=== PATIENT | male | born 1970 | race Caucasian/White ===

== ENCOUNTER 2019-06-25 15:47 | Outpatient (REF) | payer SELFPAY ==
[2019-06-25 19:15] LABS: Chol HDL Ratio 5.17 mg/dL (1.0-5.00); Cholesterol 212 mg/dL (0-200); Glucose 265 mg/dL (65-115); HDL Cholesterol 41 mg/dL (60-100); LDL Cholesterol Calculated 134 mg/dL (50-129); LDL HDL Ratio 3.27 RATIO (0.00-3.22); Triglycerides 184 mg/dL (0-150)
[2019-06-25 21:27] LABS: Estmated Average Glucose 258; Hemoglobin A1C 10.6 % (4.0-6.0)
== END 2019-06-25 15:48 | disposition home or self-care (01) ==
LOC: LAB 15:47
PROVIDERS: Family Provider Nurse Practitioner; PCP Nurse Practitioner; Visit Provider Dermatology
DX: Z13.9 Encounter for screening, unspecified (principal)
CPT/HCPCS: 80061; 82947; 83036

== ENCOUNTER → 2019-10-13 11:01 | Outpatient (BNVA) | payer SELFPAY | PROVIDERS: Family Provider Nurse Practitioner; PCP Nurse Practitioner; Visit Provider Nurse Practitioner Family | DX: L02.212 Cutaneous abscess of back [any part, except buttock and flank] (principal) | CPT/HCPCS: 87070; 87077; 87186 ==

== ENCOUNTER → 2019-10-17 11:28 | Outpatient (BNVA) | payer SELFPAY | PROVIDERS: Family Provider Nurse Practitioner; PCP Nurse Practitioner; Visit Provider Nurse Practitioner Family | DX: E11.42 Type 2 diabetes mellitus with diabetic polyneuropathy (principal); Z79.4 Long term (current) use of insulin; I10 Essential (primary) hypertension; L02.212 Cutaneous abscess of back [any part, except buttock and flank] | CPT/HCPCS: 80053; 80061; 83036; 84443; 85025 ==

== ENCOUNTER 2020-09-07 13:44 | Outpatient (CLI) | payer OTHER, SELFPAY ==
--- NOTE | 2020-09-07 | XR_ITS ---
WS: [id number] SCREENING DEXA SCAN [facility] CLINICAL INFORMATION: ENCOUNTER SCREENING FOR OSTEOPOROSIS COMPARISON: None. FINDINGS: The L1-L4 bone mineral density measures 1.126 g/cm2. This corresponds to a T score score of -0.8 and Z score of -1.3. Left femoral neck bone mineral density measures 1.017 g/cm2. This corresponds to a T score of -0.6 an d Z score of -0.7. Right femoral neck bone mineral density measures 1.049 g/cm2. This corresponds to a T score -0.4of an d Z score of -0.5. Mean femoral neck bone mineral density measures 1.033 g/cm2. This corresponds to a T score of -0.5 an d Z score of -0.6. XR/XR DEXA axial skeleton* 30209 IMPRESSION: Normal bone mineralization. Patient's FRAX calculated 10 year probability for major osteoporotic fracture i s 6.0 % and osteoporotic hip fracture is 0.4%.
== END 2020-09-07 13:45 | disposition home or self-care (01) ==
LOC: RADWPI 13:49
PROVIDERS: Family Provider Nurse Practitioner; PCP Nurse Practitioner; Visit Provider Nurse Practitioner Family
DX: Z13.820 Encounter for screening for osteoporosis (principal)
CPT/HCPCS: 77080

== ENCOUNTER → 2020-12-06 10:39 | Outpatient (BNVA) | payer OTHER, SELFPAY | PROVIDERS: PCP Nurse Practitioner Family; Visit Provider Surgery | DX: Z20.822 Contact with and (suspected) exposure to COVID-19 (principal); Z12.11 Encounter for screening for malignant neoplasm of colon | CPT/HCPCS: 87635 ==

== ENCOUNTER 2020-12-09 08:10 | Day surgery (SDC) | payer OTHER, SELFPAY ==
[2020-09-28 14:05] VITALS: BMI 43.0
--- NOTE | 2020-12-09 08:20 | P.HP_ITS ---
Same Day Surgery H&P Indication for Procedure/HPI DATE OF PROCEDURE: December 09, 2020 CHIEF COMPLAINT/INDICATIONFOR SURGICAL PROCEDURE: Screening colonoscopy PREOP DIAGNOSIS: screening colonoscopy PLANNED PROCEDRUE: Operation Date: 12/09/20 10:00 Proposed Procedures p Colonoscopy 16084 Z12.11(Not Applicable) - Pardeep Hernandez MD Medications/Allergies* Allergies/Adverse Reactions Allergy/AdvReac Type Severity Reaction Status Date / Time No Known Allergies Allergy Verified 09/28/20 13:54 Pertinent History/Comorbid Conditions* Medical History (Updated 10/17/19 @ 09:17 by YOVANI Arrieta) Diabetic neuropathy Hypertension Hypotestosteronemia Type 2 diabetes mellitus Pertinent Exam Findings alert, oriented x 3 and regular rate & rhythm Recommendations Surgery/Procedure today Coding Level of Care Code Acute 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
[2020-12-09 08:45] VITALS: BP 117/63; PULSE 79; RESP 18; TEMP 36.8; O2SAT 95
--- NOTE | 2020-12-09 08:47 | ANES.PREANE2 ---
Pre-Anesthetic Assessment Pre-Anesthetic Assessment: Height/Weight: Height 1.78 m Weight 136.078 kg Preop Diagnosis: screening colonoscopy Proposed Procedure: Operation Date: 12/09/20 10:00 Proposed Procedures p Colonoscopy 23540 Z12.11(Not Applicable) - Pardeep Hernandez MD Was Beta Tea taken within 24 hours: N/A Was Clonidine taken within 24 hours: N/A Social: Social History: No alcohol and No tobacco Exam: Pre-Anes Outpt Exam: alert, oriented x 3, clear to auscultation bilaterally and regular rate & rhythm Airway: Submandibular: WNL Cervical ROM: WNL MP: 2 Dentition: Chipped Additional comments: Missing #25 CV/HEM: CV/HEM: HTN Metabolic: Metabolic: DM and Morbid obesity Anesthetic Plan: Anesthesia: MAC Risk of > 500 ml blood loss (7ml/kg in children): No PFSH Anesthesia PFSH: Medical History Diabetic neuropathy Hypertension Hypotestosteronemia Type 2 diabetes mellitus Data Anesthesia Cardiac Studies: No Data to Display
[2020-12-09 09:08] LABS: Glucose Point of Care 225 mg/dL (70-110)
[2020-12-09] MEDS: sodium chloride 0.9% 1,000 ML 30 ML IV (10:00)
[2020-12-09 10:11] VITALS: BP 85/58; PULSE 79; RESP 14; TEMP 36.3; O2SAT 91
[2020-12-09 10:26] VITALS: BP 106/57; PULSE 83; RESP 16; TEMP 36.6; O2SAT 95
--- NOTE | 2020-12-09 11:28 | ANE.PACU2 ---
Inpatient post-anesthesia follow up: Airway intact: Yes Vital signs: Temperature 97.8 F Pulse Rate 83 Respiratory Rate 16 Blood Pressure 106/57 Pulse Oximetry 95 Oxygen Delivery Me thod Room Air Oxygen Flow Rate 3 Fraction of Inspir ed Oxygen Hydration adequate: Yes Mental status: Baseline
--- NOTE | 2020-12-09 14:39 | ANE.PACU2 ---
Inpatient post-anesthesia follow up: Airway intact: Yes Vital signs: Temperature 97.8 F Pulse Rate 83 Respiratory Rate 16 Blood Pressure 106/57 Pulse Oximetry 95 Oxygen Delivery Me thod Room Air Oxygen Flow Rate 3 Fraction of Inspir ed Oxygen Hydration adequate: Yes Nausea and vomiting: No Pain level: 1 Mental status: Baseline
== END 2020-12-09 10:42 | disposition home or self-care (01) ==
PROVIDERS: PCP Nurse Practitioner Family; Visit Provider Surgery
PROC: 0DJD8ZZ Inspection of Lower Intestinal Tract, Via Natural or Artificial Opening Endoscopic (ICD-10-PCS; CPT 45378; principal; 2020-12-09 10:00)
DX: Z12.11 Encounter for screening for malignant neoplasm of colon (principal); E11.40 Type 2 diabetes mellitus with diabetic neuropathy, unspecified; I10 Essential (primary) hypertension; K57.30 Diverticulosis of large intestine without perforation or abscess without bleeding; K64.8 Other hemorrhoids; E66.01 Morbid (severe) obesity due to excess calories; Z68.41 Body mass index [BMI] 40.0-44.9, adult
CPT/HCPCS: 36416; 45385; 82962; 88305; 96360; J2704; J7030

== ENCOUNTER 2021-07-18 11:26 | Emergency (ER) | payer MEDICAID, SELFPAY ==
[2021-07-18 11:35] VITALS: BP 136/83; PULSE 81; RESP 16; TEMP 36.5; O2SAT 97; BMI 43.0
--- NOTE | 2021-07-18 11:50 | XRR_ITS ---
PROCEDURE INFORMATION: Exam: XR Left Finger(s) Exam date and time: 07/18/2021 11:04 AM Age: 51 years old Clinical indication: Injury or trauma; Other: Laceration; Finger; Left; Thumb; Additional info: Trauma; Thumb TECHNIQUE: Imaging protocol: XR Left fingers. Views: Minimum 2 views. COMPARISON: No relevant prior studies available. FINDINGS: Bones/joints: Osseous structures are intact. Negative for fracture. Soft tissues: Tiny thin linear radiopaque foreign bodies at the laceration site. XR/XR finger LT min 2V [id number] IMPRESSION: No acute osseous abnormalities. Tiny thin linear radiopaque foreign bodies at the laceration site.
--- NOTE | 2021-07-18 11:50 | ED_ITS ---
HPI - Wound/Laceration General: Chief Complaint: Wound/Laceration Stated Complaint: Cut thumb on left hand Time Seen by Provider: 07/18/21 11:30 Source: patient Mode of arrival: ambulatory Limitations: no limitations History of Present Illness: Patient is a 51-year-old male who presents to ED today for evaluation of a laceration to his left thumb that he sustained after he cut it on a piece of metal on the bumper of a vehicle. Tetanus is up-to-date. Onset (ago): hour(s) Extremity Location: Left: hand Place: home Patient tetanus UTD: Yes Context: accidental Associated symptoms: Reports no associated symptoms Treatments prior to arrival: bandage Review of Systems Musc: Reports: extremity pain (L thumb); Denies: extremity swelling or joint swelling Skin/Breast: Reports: other (laceration L thumb) Neuro: Denies: numbness in extremities or sensory changes [facility] ED PFSH: Medical History Diabetic neuropathy Hypertension Hypotestosteronemia Type 2 diabetes mellitus Surgical History Status post colonoscopy (12/09/20) Family History Father CAD (coronary artery disease) Hypertension Cancer Seizures Mother Hypertension Grandfather Hypertension Social History Smoking and tobacco status: never smoked Alcohol intake: never Physical Exam Const: COMMON NORMALS: no acute distress, patient oriented x3, no limitations and alert Extremity: GENERAL: Yes normal exam except as noted LEFT UPPER EXTREMITY: Yes hand & digits OTHER: 2.5cm laceration to the palmar aspect of L thumb; bleeding controlled; no obvious tendon injuries noted; sensation and cap refill intact distally; full ROM against resistance Neuro: COMMON NORMALS: patient oriented x3, moves all extremities, no focal motor deficits and no sensory deficits noted SENSORIUM/ORIENTATION: Yes alert Procedures Laceration Laceration 1: Site: hand (thumb) Side (If applicable): left Size (cm): 2.5 Description: linear Depth: simple, single layer Local Anesthetic: lidocaine 1% Amount of anesthesia used (mL): 4.0 Pre-repair: wound explored and irrigated extensively Skin layer closed with: nylon Size (cm): 4-0 Number of sutures: 7 Technique: simple, interrupted Course Vital Signs: Vital signs: Vital Signs Temperature 97.7 F 07/18/21 11:35 Pulse Rate 81 07/18/21 11:35 Respiratory Rate 16 07/18/21 11:35 Blood Pressure 136/83 07/18/21 11:35 Pulse Oximetry 97 07/18/21 11:35 MDM - Wound/Laceration Medical Decision Making XR negative for fx/dislocation. Comments on some very tiny thin linear foreign bodies-these are extremely hard to see on patient's films. Extensive irrigation was performed the laceration and it was closed as documented. Patient will be placed on antibiotics. Wound care discussed at home. Return to ED precautions verbally given. Lab Data Radiology Impressions Finger X-Ray 07/18/21 11:50 IMPRESSION: No acute osseous abnormalities. Tiny thin linear radiopaque foreign bodies at the laceration site. Discharge Plan Discharge Patient Disposition: Home Clinical Impression: Laceration of left thumb Qualifiers: Encounter type: initial encounter Damage to nail status: without damage Foreign body presence: without foreign body Qualified Code(s): S61.012A - Laceration without foreign body of left thumb without damage to nail, initial encounter Condition: Stable Prescriptions: New cephalexin 500 mg capsule 500 mg PO Q6H 7 Days Qty: 28 0RF Discontinued clindamycin HCl 300 mg capsule 300 mg PO TID 10 Days Qty: 30 0RF No Action lisinopril 20 mg tablet 20 mg PO DAILY 30 Days Qty: 90 0RF hydrochlorothiazide 25 mg tablet 25 mg PO DAILY 90 Days Qty: 90 0RF metformin 1,000 mg tablet 1,000 mg PO BID 90 Days Qty: 180 0RF Januvia 100 mg tablet 100 mg PO DAILY 90 Days Qty: 90 0RF pravastatin 10 mg tablet 10 mg PO DAILY 90 Days Qty: 90 0RF Levemir FlexTouch U-100 Insuln 100 unit/mL (3 mL) insulin pen 20 unit SUBCUT DAILY 90 Days Qty: 15 0RF gabapentin 400 mg capsule 400 mg PO TID 90 Days Qty: 270 0RF Discharge Orders: Discharge ED (Routine); Ordered 07/18/21 Ordered By: Emily Rodriguez Referrals: Daisha Martínez FNP-C [Primary Care Provider] - Patient Instructions: Laceration (ED) Activity Restrictions/Additional Instructions: Keep wound/laceration clean with warm soap and water twice daily. Monitor for signs of infection such as redness, swelling, increased pain, or drainage. Please seek medical re-evaluation if these occur. If you received sutures today these will need to be removed (unless you were told by the provider that they are absorbable). The provider should have discussed with you the length of time until removal-7 TO 10 DAYS. You may return to the emergency department for this service. If your wound was closed with Steri-Strips or glue/adhesive these will fall off within the next week or so. Coding Level of Care Code ED Mobility Specialist for Chg Fwd Exam Expanded Problem Focused
== END 2021-07-18 13:01 | disposition home or self-care (01) ==
PROVIDERS: Emergency Provider Physician Assistant; PCP Nurse Practitioner Family
DX: S61.012A Laceration without foreign body of left thumb without damage to nail, initial encounter (principal); Z79.84 Long term (current) use of oral hypoglycemic drugs; Z79.4 Long term (current) use of insulin; I10 Essential (primary) hypertension; E11.40 Type 2 diabetes mellitus with diabetic neuropathy, unspecified; W26.8XXA Contact with other sharp object(s), not elsewhere classified, initial encounter
CPT/HCPCS: 12001; 73140; 99282

== ENCOUNTER → 2022-07-20 11:29 | Outpatient (BNVA) | payer MEDICAID, SELFPAY | PROVIDERS: PCP Nurse Practitioner Family; Referring Provider Nurse Practitioner Family; Visit Provider Physician Assistant | DX: M43.16 Spondylolisthesis, lumbar region (principal) | CPT/HCPCS: 72110 ==

== ENCOUNTER 2022-10-02 06:45 | Outpatient (CLI) | payer MEDICAID, SELFPAY ==
--- NOTE | 2022-10-02 | ECG_ITS ---
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 Interpretive Statements NAME OF STUDY: LEXISCAN SESTAMIBI STRESS TEST INDICATION: [Chest Pain, ] Procedure: At the baseline, the blood pressure was 134/82 mmHg with a heart rate of 70 bpm. The electrocardiogram showed normal sinus rhythm, normal axis with normal ST and T's. The Lexiscan was infused over a period of 20 seconds. A total of 0.4 mg of Lexiscan was infused. The stress phase was continued for a total of 5 minutes. Heart rate was at the end of stress phase was 80 bpm and a blood pressure of 139/72 mmHg. The EKG at the peak infusion revealed normal sinus rhythm with no significant ST-T wave changes. Sestamibi was injected 20 seconds after the Lexiscan infusion. Heart rate at the end of recovery phase of 74 bpm. Conclusion: 1. Normal EKG response to Lexiscan infusion 2. No Lexiscan induced chest pain or cardiac arrhythmia. 3. Normal blood pressure and heart rate response. 4. Sestamibi/sestamibi perfusion scan pending; see separate report. Electronically Signed On 10-17-2022 17:00:20 CDT by Edward Donovan M.D. [id number]
[2022-10-02 07:56] VITALS: BMI 45.6
--- NOTE | 2022-10-02 07:58 | NMCV_ITS ---
NM shine perf SPECT r/s* [id number] CountsClark Age: 52 Gender: M : 1970 Exam Date: 10/02/2022 08:26 Ordering Phys: Dimitri Gaines MD ([email or web address]) Technologist: TALHA Griffin Exam Location: [facility] Indications: CORONARY ANGIOPLASTY STATUS STRESS TEST Please see separate stress test report in [facility] for full findings IMAGE PROTOCOL Rest/Stress 1 Lexiscan Day Radiopharmaceutical Dose (mCi) Administration Site Administered by Rest: Tc-99m 10.5 IV TALHA Jason Sestamibi Stress:Tc-99m 33.0 IV TALHA Jason Sestamibi Rest: 02-Oct-2022 60 Discovery 630 Stress: 02-Oct-2022 30 Discovery 630 0.4mg Lexiscan. Images obtained in supine and prone position. SPECT RESULTS Technical Quality: Excellent Raw Data Analysis: Normal Image Corrections: No attenuation or motion correction applied Summed Stress Score: 0 Summed Rest Score: 2 Summed Difference Score: 0 PERFUSION FINDINGS SPECT images demonstrate homogeneous tracer distribution throughout the myocardium. FUNCTIONAL RESULTS (calculated via Gated SPECT) Stress Image LV EF (%): 64 Stress EDV (mL):151 TID: 1.12 Stress ESV (mL):54 FUNCTIONAL FINDINGS: There is normal left ventricular systolic function. IMPRESSIONS 1. Normal myocardial perfusion imaging with no evidence of ischemia 2. LV systolic function is normal Edward Donovan MD (Electronically Signed) Final Date: 07 October 2022 09:22 S
[2022-10-02] MEDS: regadenoson 0.4 Mg/5 ml Syringe IVP (10:08)
[2022-10-02 10:19] VITALS: BP 135/76; PULSE 72
== END 2022-10-02 06:46 | disposition home or self-care (01) ==
PROVIDERS: PCP Nurse Practitioner Family; Visit Provider Internal Medicine Cardiovascular Disease
DX: R07.9 Chest pain, unspecified (principal); Z98.61 Coronary angioplasty status
CPT/HCPCS: 36415; 78452; 93017; 96374; A9500; J2785

== ENCOUNTER 2022-12-04 13:56 | Emergency (ER) | payer MEDICAID, SELFPAY ==
[2022-12-04 13:59] VITALS: BP 159/86; PULSE 83; TEMP 36.6; O2SAT 96; BMI 43.0
--- NOTE | 2022-12-04 14:20 | XR_ITS ---
WS: [id number] XR chest 1V portable [id number] REASON FOR EXAM: chest pain FINDINGS: No comparison examination. Thoracic aorta is unremarkable. The heart is at the upper limits of normal in size. Mediastinum appears somewhat widened, most likely due to increased mediastinal fat. Calcified granulomatous disease is seen in both hemithoraces. Enlarged upper lobe pulmonary veins. 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 Significant degenerative spondylosis in the mid and lower thoracic cervical spine. XR/XR chest 1V portable [id number] IMPRESSION: Probable pulmonary venous hypertension with no definite findings of interstitia l edema.
--- NOTE | 2022-12-04 14:28 | ECG_ITS ---
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 Measurements Intervals [place] Rate: 87 P: 45 CT: 141 QRS: 45 QRSD: 91 T: 35 QT: 352 QTc: 425 Interpretive Statements SINUS RHYTHM LOW QRS VOLTAGE IN PRECORDIAL LEADS [QRS DEFLECTION < 1.0 mV IN CHEST LEADS] Compared to ECG 08/29/2022 11:24:09 Low QRS voltage now present T-wave abnormality no longer present Electronically Signed On 12-04-2022 22:45:47 CDT by Dimitri Gaines M.D. [id number]
[2022-12-04 14:31] LABS: Basophils # 0.1 10^3/uL (0.0-0.1); Basophils % 0.7 %; Eosinophils # 0.3 10^3/uL (0.0-0.8); Eosinophils % 2.6 %; Hematocrit 43.4 % (42.0-52.0); Hemoglobin 14.4 g/dL (11.7-16.6); Lymphocytes # 3.2 10^3/uL (0.8-4.8); Lymphocytes % 31.3 %; Mean Corpuscular HGB Conc 33.2 g/dL (30.0-36.0); Mean Corpuscular Hemoglobin 29.9 pg (28.0-34.0); Mean Platelet Volume 9.3 fL (7.4-10.4); Monocytes % 9.5 %; Neutrophils # 5.61 10^3/uL (1.8-7.7); Neutrophils % 55.2 %; Nucleated Red Blood Cells % 0 %; Platelet Count 182 10^3/cmm (130-400); Red Blood Count 4.82 10^6/uL (4.1-5.3); Red Cell Distribution Width 12.3 % (12.1-15.1); White Blood Count 10.2 10^3/uL (4.0-10.0)
[2022-12-04 14:51] LABS: Troponin(5th) Baseline 16 ng/L (0-15)
[2022-12-04 14:53] LABS: Alanine Aminotransferase 51 U/L (0-41); Albumin Level 3.9 g/dL (3.5-5.2); Alkaline Phosphatase 80 U/L (40-130); Anion Gap 19.2 (5-19); Aspartate Amino Transferase 39 U/L (0-40); Blood Urea Nitrogen 12 mg/dL (6-20); Calcium 8.7 mg/dL (8.5-10.5); Carbon Dioxide 20 mmol/L (22-29); Chloride 98 mmol/L (98-107); Globulin 2.5 g/dL (1.3-4.6); Glomerular Filtration Rate 140.4 mL/min (90-130); Glucose 218 mg/dL (65-115); Osmolality Calculated 282 mOsm/kg (285-295); Potassium 4.2 mmol/L (3.5-5.1); Sodium 133 mmol/L (136-145); Total Bilirubin 0.3 mg/dL (0.15-1.2); Total Protein 6.4 g/dL (6.6-8.7)
--- NOTE | 2022-12-04 15:03 | ED_ITS ---
HPI - Chest Pain General: Chief Complaint: Chest Pain Stated Complaint: chest pain x 4 days Time Seen by Provider: 12/04/22 14:20 History of Present Illness: Patient presents to the ER with complaints of left chest pain that radiates to his back of his neck and over to the right side. This pain is worse with movement worse with tightening the muscles in his chest back and neck. This pain has been going on for over 4 days. Patient went to the clinic fortunately sent over here. Patient says he has been feeling short of breath. Patient does have a history of diabetes chronic back pain, neuropathy, hyperlipidemia and low testosterone. Review of Systems General: Reports: 10 or more systems reviewed and unremarkable except in HPI and below PFSH ED PFSH: Medical History Diabetic neuropathy Dyspnea on exertion Hypertension Hypotestosteronemia Insomnia Opioid dependence Type 2 diabetes mellitus Surgical History Hx of colonoscopy Status post colonoscopy (12/09/20) Family History Father CAD (coronary artery disease) Hypertension Cancer Seizures Mother Hypertension Grandfather Hypertension Social History Smoking and tobacco status: never smoked Alcohol intake: never Substance/Drug Use: never Physical Exam Const: COMMON NORMALS: no acute distress, patient oriented x3, no limitations, healthy appearing, alert and well nourished HENMT: COMMON NORMALS: normocephalic, atraumatic, hearing grossly normal bilaterally, external ears normal, Normal external nose present and moist oral mucous membranes HEAD & SCALP: normocephalic and atraumatic NOSE: Normal external nose present EXTERNAL EAR: Yes external ears normal Eye: COMMON NORMALS: Equal, round and reactive pupils present, EOMs intact bilaterally, conjunctivae normal and no scleral icterus CONJUNCTIVA: Yes conjunctivae normal PUPIL: Yes Equal, round and reactive pupils present Neck/C-Spine: COMMON NORMALS: full ROM (Tenderness with palpation over left trapezius paraspinal muscle region.), no lymphadenopathy, no meningeal signs, no JVD and Thyroid normal THYROID: Thyroid normal Chest: COMMONS NORMALS: normal inspection of the chest; negative for normal palpation of entire chest wall (Palpation over left anterior pectoralis musculature reproduces pain.) Resp: COMMON NORMALS: normal respiratory effort, No retractions, No use of accessory muscles and clear to auscultation bilaterally AUSCULTATION: clear to auscultation bilaterally Cardio: COMMON NORMALS: no JVD, regular rhythm, S1 normal heart sound present, S2 normal heart sound present, No gallops present (Cardio), No clicks present (Cardio), No murmurs present (Cardio) and No rub (Cardio) RHYTHM: regular rhythm HEART SOUNDS: S1 normal heart sound present and S2 normal heart sound present GI: COMMON NORMALS: Normal to inspection, nondistended, normoactive bowel sounds present, Soft to palpation, non-tender, No hepatosplenomegaly present and no masses PALPATION: Yes Soft to palpation and Yes No hepatosplenomegaly pre sent : COMMON NORMALS: Yes no CVA tenderness BLADDER/KIDNEY EXAM: Yes no CVA tenderness Back/Pelvis: COMMON NORMALS: no CVA tenderness OTHER: Tenderness with palpation over the left paraspinal thoracic musculature and cerv ical musculature. This does reproduce patient's pain. Neuro: COMMON NORMALS: patient oriented x3 SENSORIUM/ORIENTATION: Yes alert MENINGEAL SIGNS: Yes no meningeal signs Course Vital Signs: Vital signs: Vital Signs Temperature 97.8 F 12/04/22 13:59 Pulse Rate 95 12/04/22 15:09 Blood Pressure 154/97 12/04/22 15:09 Pulse Oximetry 94 12/04/22 15:09 Oxygen Delivery Me thod Room Air 12/04/22 15:09 Oxygen Flow Rate 4 12/04/22 13:59 MDM - Chest Pain Medical Decision Making Patient presents to the ER with chest wall pain and its starting on his left side radiating to his back up his neck and down his left arm at times. But also radiates over to his right back. Patient does not have a history of cardiac di sease per se but he is a diabetic that requires insulin and has high blood pressure. Cardiac work-up was obtained which was benign. Patient was given Toradol and Norflex which helped some. Patient's pain was reproducible with palpation. Patient will be discharged home to take [id number] Tylenol, Motrin, Bengay and other muscle rubs. All this was detailed to the patient and he is in agreements. Patient knows that if this pain worsens or he cannot get under control he is able to come back to the ER for further evaluation and treatment. Differential Diagnosis Unlikely acute massive pulmonary embolism, acute respiratory failure, acute myocardial infarction, cardiac arrest or sudden cardiac Medical Records I reviewed the patient's medical records. Lab Data I reviewed the patient's lab results. 12/04/22 14:07 12/04/22 14:07 Radiology Impressions Chest X-Ray 12/04/22 14:20 IMPRESSION: Probable pulmonary venous hypertension with no definite findings of interstitial edema. Laboratory Results WBC 10.2 10^3/uL (4.0-10.0) H 12/04/22 14:07 RBC 4.82 10^6/uL (4.1-5.3) 12/04/22 14:07 Hgb 14.4 g/dL (11.7-16.6) 12/04/22 14:07 Hct 43.4 % (42.0-52.0) 12/04/22 14:07 MCV 90.0 fl (80-94) 12/04/22 14:07 MCH 29.9 pg (28.0-34.0) 12/04/22 14:07 MCHC 33.2 g/dL (30.0-36.0) 12/04/22 14:07 RDW 12.3 % (12.1-15.1) 12/04/22 14:07 Plt Count 182 10^3/cmm (130-400) 12/04/22 14:07 MPV 9.3 fL (7.4-10.4) 12/04/22 14:07 Neut % (Auto) 55.2 % 12/04/22 14:07 Lymph % (Auto) 31.3 % 12/04/22 14:07 [place] % (Auto) 9.5 % 12/04/22 14:07 Eos % (Auto) 2.6 % 12/04/22 14:07 Baso % (Auto) 0.7 % 12/04/22 14:07 Neut # (Auto) 5.61 10^3/uL (1.8-7.7) 12/04/22 14:07 Lymph # (Auto) 3.2 10^3/uL (0.8-4.8) 12/04/22 14:07 [place] # (Auto) 1.0 10^3/uL (0.2-0.9) H 12/04/22 14:07 Eos # (Auto) 0.3 10^3/uL (0.0-0.8) 12/04/22 14:07 Baso # (Auto) 0.1 10^3/uL (0.0-0.1) 12/04/22 14:07 Nucleated RBC % (auto) 0 % 12/04/22 14:07 Nucleated RBCs # 0.0 /100WBC 12/04/22 14:07 Sodium 133 mmol/L (136-145) L 12/04/22 14:07 Potassium 4.2 mmol/L (3.5-5.1) 12/04/22 14:07 Chloride 98 mmol/L (98-107) 12/04/22 14:07 Carbon Dioxide 20 mmol/L (22-29) L 12/04/22 14:07 Anion Gap 19.2 (5-19) H 12/04/22 14:07 BUN 12 mg/dL (6-20) 12/04/22 14:07 Creatinine 0.6 mg/dL (0.7-1.2) L 12/04/22 14:07 GFR Calculation 140.4 mL/min (90-130) H 12/04/22 14:07 Glucose 218 mg/dL (65-115) H 12/04/22 14:07 Calculated Osmolality 282 mOsm/kg (285-295) L 12/04/22 14:07 Calcium 8.7 mg/dL (8.5-10.5) 12/04/22 14:07 Total Bilirubin 0.3 mg/dL (0.15-1.2) 12/04/22 14:07 AST 39 U/L (0-40) 12/04/22 14:07 ALT 51 U/L (0-41) H 12/04/22 14:07 Alkaline Phosphatase 80 U/L (40-130) 12/04/22 14:07 Troponin T Baseline 16 ng/L (0-15) H 12/04/22 14:07 Troponin T 120 Minute 14.28 ng/L (0-15) 12/04/22 16:09 Delta Troponin T -1.72 ABS# (0-10) L 12/04/22 16:09 Total Protein 6.4 g/dL (6.6-8.7) L 12/04/22 14:07 Albumin 3.9 g/dL (3.5-5.2) 12/04/22 14:07 Globulin 2.5 g/dL (1.3-4.6) 12/04/22 14:07 Urine Color Yellow (Yellow) 12/04/22 15:13 Urine Appearance Clear (CLEAR) 12/04/22 15:13 Urine pH 5 (5-7) 12/04/22 15:13 Ur Specific [place] 1.020 (1.005-1.030) 12/04/22 15:13 Urine Protein Neg (Negative) 12/04/22 15:13 Urine Glucose (UA) 4+ (Normal) H 12/04/22 15:13 Urine Ketones 1+ (Negative) H 12/04/22 15:13 Urine Blood Neg (Negative) 12/04/22 15:13 Urine Nitrate Negative (Negative) 12/04/22 15:13 Urine Bilirubin Neg (Negative) 12/04/22 15:13 Urine Urobilinogen Norm mg/dL (Negative) 12/04/22 15:13 Ur Leukocyte Esterase Negative (Negative) 12/04/22 15:13 EKG Data EKG 1: I personally reviewed and interpreted this EKG as follows: EKG interpretation date: 12/04/22 EKG interpretation time: 14:28 Prior EKG tracings: not available for review Interpretation: EKG showed normal sinus rhythm with ventricular rate of 87 bpm, SC interval 141, QRS duration 91, QTc of 397, no ST-T wave changes EKG 2: I personally reviewed and interpreted this EKG as follows: EKG interpretation date: 12/04/22 EKG interpretation time: 16:26 Prior EKG tracings: available for review Interpretation: EKG showed normal sinus rhythm at 92 beats minute, SC interval 133, QRS duration 85, QTc 390, nonspecific T wave abnormality Discharge Plan Discharge Patient Disposition: Home Clinical Impression: Atypical chest pain, Acute chest wall pain Condition: Stable Prescriptions: No Action Januvia 100 mg tablet 100 mg PO DAILY 90 Days Qty: 90 0RF pravastatin 10 mg tablet 10 mg PO DAILY 90 Days Qty: 90 0RF carvedilol 6.25 mg tablet 6.25 mg PO BID 30 Days Qty: 60 5RF Rx Instructions: must administer with a meal/food nitroglycerin [Nitrostat] 0.3 mg tablet, sublingual 0.3 mg sublingual Q5M PRN (Reason: chest pain) Qty: 30 5RF Rx Instructions: do not exceed 3 doses per episode metformin 500 mg tablet 1,000 mg PO BID gabapentin 600 mg tablet 600 mg PO TID simvastatin 40 mg tablet 40 mg PO DAILY famotidine 20 mg tablet 20 mg PO BID PRN (Reason: Acid Reflux) methocarbamol 750 mg tablet 750 mg PO TID ergocalciferol (vitamin D2) 1,250 mcg (50,000 unit) capsule 1,251 mcg PO .2 TIMES MONTHLY Ventolin HFA 90 mcg/actuation HFA aerosol inhaler 2 inh INHALATION Q4H PRN (Reason: Shortness Of Breath) lisinopril 40 mg tablet 40 mg PO DAILY naproxen 500 mg tablet 500 mg PO BID Novolog FlexPen U-100 Insulin 100 unit/mL (3 mL) insulin pen See Rx Instructions .ROUTE .COMPLEX Rx Instructions: PER SLIDING SCALE BEFORE MEALS 3 TIMES DAILY Lantus Solostar U-100 Insulin 100 unit/mL (3 mL) insulin pen 66 unit SUBCUT DAILY Trulicity 1.5 mg/0.5 mL pen injector 1.5 mg SUBCUT .ONCE WEEKLY Rx Instructions: ON SUNDAY hydrochlorothiazide 25 mg tablet 25 mg PO DAILY PRN (Reason: Edema) Discharge Orders: Discharge ED (Routine); Ordered 12/04/22 Ordered By: Martin Seth Referrals: Daisha Martínez, REGISTERED NURSE TEACHER-C [Primary Care Provider] - 1 week Patient Instructions: Chest Pain - Chest Wall Activity Restrictions/Additional Instructions: Please take [id number] Tylenol, Motrin, Bengay, Biofreeze etc. as directed as needed. Please follow-up with your family practice doctor in the next week for further evaluation and treatment. If you cannot get this pain control or it worsens please feel free to come back to the ER for further evaluation and treatment. Coding Level of Care Code ED Inventory Taker for Eric Newman
[2022-12-04 15:09] VITALS: BP 154/97; PULSE 95; O2SAT 94
[2022-12-04] MEDS: ketorolac 30 mg/mL INJ IVP (15:25)
[2022-12-04] MEDS: orphenadrine 30 mg/mL Inj 2 mL 60 MG IVP (15:25)
[2022-12-04 15:27] LABS: Add Urine Microscopic? NO; Charge for UA Resulting for Rev
[2022-12-04 15:30] LABS: Bilirubin Urine Neg (Negative); Blood Urine Neg (Negative); Glucose Urine UA 4+ (Normal); Ketones Urine 1+ (Negative); Leukocyte Esterase Urine Negative (Negative); Nitrate Urine Negative (Negative); Protein Urine Neg (Negative); Urine Appearance Clear (CLEAR); Urine Color Yellow (Yellow); Urobilinogen Urine Norm (Negative); pH Urine 5 (5-7)
--- NOTE | 2022-12-04 16:26 | ECG_ITS ---
[facility] Test Date: 2022-12-04 Pat Name: Clark Salamanca Department: Room: Gender: Male Curer Acid Drum: : 1970 Requested By: Martin Seth Order Number: [id number] Edis MD: Dimitri Gaines M.D. Measurements Intervals [place] Rate: 92 P: 38 [place]: 133 QRS: 43 QRSD: 85 T: 48 QT: 340 QTc: 422 Interpretive Statements SINUS RHYTHM NONSPECIFIC T-WAVE ABNORMALITY Compared to ECG 12/04/2022 14:28:53 T-wave abnormality now present Electronically Signed On 12-04-2022 22:51:13 CDT by Dimitri Gaines M.D. [email or web address] [email or web address] health – soin medical centerGroup [id number]
[2022-12-04 16:42] LABS: Troponin 5 2HR 14.28 ng/L (0-15); Troponin 5 2HR Delta -1.72 ABS# (0-10)
[2022-12-04 17:47] VITALS: BP 158/86; PULSE 98; O2SAT 96
== END 2022-12-04 17:45 | disposition home or self-care (01) ==
PROVIDERS: Emergency Provider Emergency Medicine; PCP Nurse Practitioner Family
DX: R07.89 Other chest pain (principal); Z79.4 Long term (current) use of insulin; Z79.84 Long term (current) use of oral hypoglycemic drugs; Z79.85 Long-term (current) use of injectable non-insulin antidiabetic drugs; I10 Essential (primary) hypertension; E11.9 Type 2 diabetes mellitus without complications
CPT/HCPCS: 36415; 71045; 80053; 81003; 84484; 85025; 93005; 96374; 96375; 99285; J1885; J2360

== ENCOUNTER 2023-01-16 09:30 | Outpatient (CLI) | payer MEDICAID, SELFPAY ==
--- NOTE | 2023-01-16 09:37 | MR_ITS ---
WS: [id number] MRI CERVICAL SPINE NONCONTRAST HISTORY: RADICULOPATHY,CERVICAL REGION COMPARISON: None available. Technique: Multiplanar, multisequence noncontrast imaging of the cervical spine. Straightening of the normal cervical lordosis. Signal within the cervical cord is normal. Visualized posterior fossa is unremarkable. Craniocervical junction, C1 and C2 relationship, odontoid process and soft tissues are normal. C2-C3: Normal. C3-C4: Minimal osteophytic ridging. No stenosis. C4-C5: Mild osteophytic ridging. Small bilateral foraminal osteophytes. Mild bilateral foraminal sten osis. C5-C6: Small bilateral foraminal osteophytes. Mild foraminal narrowing. C6-C7: Normal. C7-T1: Normal. Paraspinal soft tissue are normal. IMPRESSION: 1. Study was terminated early before all sequences were obtained. Patient is claustrophobic and could not continue with the exam. Study is limited as all sequences were not obtained prior 2. Small bilateral foraminal osteophytes at C3-4, C4-5 and C5-6. Mild bilateral foraminal narrowing a t C4-5 and C5-6. 3. No central stenosis.
== END 2023-01-16 09:31 | disposition home or self-care (01) ==
LOC: RAD 09:31
PROVIDERS: PCP Nurse Practitioner Family; Visit Provider Nurse Practitioner Family
DX: M54.12 Radiculopathy, cervical region (principal); Z53.8 Procedure and treatment not carried out for other reasons
CPT/HCPCS: 72141

== ENCOUNTER → 2023-06-22 08:57 | Outpatient (BNVA) | payer MEDICAID, SELFPAY | PROVIDERS: PCP Nurse Practitioner Family; Referring Provider Anesthesiology Pain Medicine; Visit Provider Physician Assistant | DX: M75.101 Unspecified rotator cuff tear or rupture of right shoulder, not specified as traumatic; S43.431A Superior glenoid labrum lesion of right shoulder, initial encounter; W17.89XA Other fall from one level to another, initial encounter; M19.011 Primary osteoarthritis, right shoulder | CPT/HCPCS: 73030 ==

== ENCOUNTER 2023-07-26 09:10 | Day surgery (SDC) | payer MEDICAID, SELFPAY ==
[2023-07-26] VITALS (10 sets, daily range): BP systolic 94–148; BP diastolic 49–83; PULSE 75–88; RESP 16–18; TEMP 36.2–36.4; O2SAT 92–97; BMI 43.0
[2023-07-26] MEDS: acetaminophen 1,000 MG/100 ML PIGGYBACK 400 MG IV (09:55)
[2023-07-26] MEDS: ketorolac 30 mg/mL INJ IVP (09:56)
[2023-07-26] MEDS: scopolamine 1.5 Patch 1 PATCH TRANSDERMA (09:57)
--- NOTE | 2023-07-26 10:40 | P.ANESASSM_ITS ---
Pre-Anesthetic Assessment Height/Weight: Height 1.78 m Weight 136.078 kg Temp Pulse Resp BP Pulse Ox O2 Del Method 97.3 F L 77 18 148/83 97 Room Air 07/26/23 10:10 07/26/23 10:10 07/26/23 10:10 07/26/23 10:10 07/26/23 10:10 07/26/23 10:10 Operation Date: 07/26/23 11:00 Proposed Procedures p Shoulder Arthroscopy(Right) - Tate Northampton, DO s Rotator Cuff Repair - Arthroscopy(Right) - Tate Northampton, DO s Subacromial Decompression(Right) - Tate Northampton, DO s AC Joint Resection(Right) - Tate Northampton, DO s SLAP Repair(Right) - Tate Vidal, DO s Bicep Tenodesis(Right) - Tate Vidal, DO Familial anesthetic complications: None Was Beta Tea taken within 24 hours: N/A Was Clonidine taken within 24 hours: N/A Last intake: Intake Last Liquid Date 07/25/23 Last Liquid Time 23:00 Last Solid Date 07/25/23 Last Solid Time 21:00 Social Tobacco (chewed at 0600) and No alcohol Exam alert, oriented x 3, clear to auscultation bilaterally and regular rate & rhythm Airway Mallampati: Class III CV/HEM Hypertension and Palpitations Negative stress tests, Echo and Event monitor not performed patient stating he hasn't had any of the chest pain episodes in over 3 months Informed patient he can re-schedule surgery until echo and event monitor is performed - states he wishes to proceed today with unknown risk Metabolic Diabetes Mellitus and Morbid Obesity Anesthetic Plan ASA status: 3 Anesthesia: General Risk of > 500 ml blood loss (7ml/kg in children): No Medications/Allergies Home Medications Medication Instructions Recorded Confirmed Last Taken Type sitagliptin phosphate 100 mg 100 mg PO DAILY 90 days #90 tabs 10/17/19 07/25/23 07/25/23 Rx tablet (Januvia) carvedilol 6.25 mg tablet 6.25 mg PO BID 30 days #60 tabs 08/29/22 07/25/23 07/25/23 Rx nitroglycerin 0.3 mg sublingual 0.3 mg sublingual Q5M PRN chest 08/29/22 07/25/23 Unknown Rx tablet (Nitrostat) pain #30 tabs albuterol sulfate 90 mcg/actuation 2 inh inhalation Q4H PRN Shortness 12/04/22 07/25/23 Unknown History aerosol inhaler (Ventolin HFA) Of Breath dulaglutide 1.5 mg/0.5 mL 1.5 mg SUBCUT .ONCE WEEKLY 12/04/22 07/25/23 07/20/23 History subcutaneous pen injector (Trulicity) ergocalciferol (vitamin D2) 1,250 1,251 mcg PO .2 TIMES MONTHLY 12/04/22 07/25/23 07/20/23 History mcg (50,000 unit) capsule famotidine 20 mg tablet 20 mg PO BID PRN Acid Reflux 12/04/22 07/25/23 Unknown History gabapentin 600 mg tablet 600 mg PO BID 12/04/22 07/25/23 07/25/23 History hydrochlorothiazide 25 mg tablet 25 mg PO DAILY PRN Edema 12/04/22 07/25/23 12/04/22 History insulin aspart U-100 100 unit/mL See Rx Instructions .Route .COMPLEX 12/04/22 07/25/23 07/25/23 History (3 mL) subcutaneous pen (Novolog FlexPen U-100 Insulin aspart) insulin glargine 100 unit/mL (3 100 unit SUBCUT BEDTIME 12/04/22 07/25/23 07/24/23 History mL) subcutaneous pen (Lantus Solostar U-100 Insulin) lisinopril 40 mg tablet 40 mg PO DAILY 12/04/22 07/25/23 07/25/23 History metformin 500 mg tablet 1,000 mg PO BID 12/04/22 07/25/23 07/25/23 History naproxen 500 mg tablet 500 mg PO BID 12/04/22 07/25/23 07/25/23 History simvastatin 40 mg tablet 40 mg PO DAILY 12/04/22 07/25/23 07/25/23 History cyclobenzaprine 10 mg tablet 10 mg PO TID PRN muscle spasm #60 06/18/23 07/25/23 Unknown Rx tabs Allergies Allergy/AdvReac Type Severity Reaction Status Date / Time atorvastatin AdvReac stomach Verified 06/22/23 09:01 cramps duloxetine AdvReac abdominal Verified 06/22/23 09:01 pain PFSH Anesthesia Medical History Dyspnea on exertion Opioid dependence Insomnia Diabetic neuropathy Type 2 diabetes mellitus Hypertension Hypotestosteronemia Surgical History Hx of colonoscopy Status post colonoscopy (12/09/20) Family History Father CAD (coronary artery disease) Hypertension Cancer Seizures Mother Hypertension Grandfather Hypertension Social History Smoking and tobacco/nicotine status: never used tobacco/nicotine Alcohol intake: never Substance/Drug Use: never Data Anesthesia Cardiac Studies: Sestamibi Stress Test (Cardiology) 10/02
--- NOTE | 2023-07-26 10:45 | ANES.PROC ---
Anesthesia Procedures Procedure/Date: 07/26/23 Nerve Block ^: Nerve Block 1: Main Anesthesia: general anesthesia Time Out Performed: Yes Consent: requested by attending/covering physician, from patient, from other, risks and benefits reviewed and patient agrees to proceed Nerve block location: interscalene (R) Anesthesia monitors applied: pulse oximetry, EKG, BP cuff and oxygen Nerve block position: semi sitting Anesthetic Used: ropivicaine 0.5% (20 ml) and with decadron (4 mg) Ultrasound used to: recognize landmarks, visualize and ID brachial plexus, in supraclavicular region and visualize and ID interscalene groove Nerve Stimulator Used?: No Interscalene/Femoral BLK: 2 stimuplex 22 g needle used for position and inplane approach, visualize local anesthetic spread and no vascular puncture identified Injection: neg aspiration of heme Patient Tolerated Procedure: well Complications: none
--- NOTE | 2023-07-26 11:28 | W.PM.OPSFHP ---
Same Day Surgery H&P Indication for Procedure/HPI DATE OF PROCEDURE: July 26, 2023 CHIEF COMPLAINT/INDICATIONFOR SURGICAL PROCEDURE: Right shoulder rotator cuff tear, AC joint arthritis, bicep tendon tear, SLAP tear, subacromial impingement PREOP DIAGNOSIS: Right shoulder rotator cuff tear, AC joint arthritis, bicep tendon tear, SL PLANNED PROCEDURE: Operation Date: 07/26/23 11:00 Proposed Procedures p Shoulder Arthroscopy(Right) - Tate Sussex, DO s Rotator Cuff Repair - Arthroscopy(Right) - Tate Vidal, DO s Subacromial Decompression(Right) - Tate Sussex, DO s AC Joint Resection(Right) - Tate Vidal, DO s SLAP Repair(Right) - Tate Vidal, DO s Bicep Tenodesis(Right) - Tate Sussex, DO Medications/Allergies* Home Medications Medication Instructions Recorded Confirmed Type albuterol sulfate 90 mcg/actuation 2 inh inhalation Q4H PRN Shortness 12/04/22 07/25/23 History aerosol inhaler (Ventolin HFA) Of Breath dulaglutide 1.5 mg/0.5 mL 1.5 mg SUBCUT .ONCE WEEKLY 12/04/22 07/25/23 History subcutaneous pen injector (Trulicity) ergocalciferol (vitamin D2) 1,250 1,251 mcg PO .2 TIMES MONTHLY 12/04/22 07/25/23 History mcg (50,000 unit) capsule famotidine 20 mg tablet 20 mg PO BID PRN Acid Reflux 12/04/22 07/25/23 History gabapentin 600 mg tablet 600 mg PO BID 12/04/22 07/25/23 History hydrochlorothiazide 25 mg tablet 25 mg PO DAILY PRN Edema 12/04/22 07/25/23 History insulin aspart U-100 100 unit/mL See Rx Instructions .Route .COMPLEX 12/04/22 07/25/23 History (3 mL) subcutaneous pen (Novolog FlexPen U-100 Insulin aspart) insulin glargine 100 unit/mL (3 100 unit SUBCUT BEDTIME 12/04/22 07/25/23 History mL) subcutaneous pen (Lantus Solostar U-100 Insulin) lisinopril 40 mg tablet 40 mg PO DAILY 12/04/22 07/25/23 History metformin 500 mg tablet 1,000 mg PO BID 12/04/22 07/25/23 History naproxen 500 mg tablet 500 mg PO BID 12/04/22 07/25/23 History simvastatin 40 mg tablet 40 mg PO DAILY 12/04/22 07/25/23 History Allergies/Adverse Reactions Allergy/AdvReac Type Severity Reaction Status Date / Time atorvastatin AdvReac stomach Verified 06/22/23 09:01 cramps duloxetine AdvReac abdominal Verified 06/22/23 09:01 pain Pertinent History/Comorbid Conditions* Medical History (Updated 06/22/23 @ 11:06 by MICHAELA Camilo) Dyspnea on exertion Opioid dependence Insomnia Diabetic neuropathy Type 2 diabetes mellitus Hypertension Hypotestosteronemia Surgical History (Updated 08/29/22 @ 23:54 by Dimitri Gaines MD) Hx of colonoscopy Status post colonoscopy (12/09/20) Family History (Updated 03/02/21 @ 16:59 by Soumya Austin RN) CAD (coronary artery disease) Father Seizures Father Cancer Father Hypertension Father Mother Grandfather Social History Smoking and tobacco/nicotine status: never used tobacco/nicotine Alcohol intake: never Substance/Drug Use: never Pertinent Exam Findings alert, oriented x 3, operative site marked and procedure specific exam findings Please refer to the office note on 06/22/2023 for detailed orthopedic examination as patient has a block this morning: Right Shoulder -Tender to palpation over biceps tendon and AC Joint -Range of motion active 0-75 and passive 75-120 degrees -Rotator cuff strength -internal weakness detected, external intact and 5/5 -Jobes test-positive with pain and weakness -Speed's Test-positive with pain and weakness -O'Briens test- positive with pain and weakness -Villarreal impingement- positive -Empty can test-positive with pain and weakness -Radial pulse 2+, normal cap refill under 2 seconds and patient can wiggle fingers. -Sensation to hand intact Recommendations Surgery/Procedure today Other Plans: Plan to proceed to the OR today with right shoulder diagnostic and surgical arthroscopy with possible SLAP repair versus tenodesis versus tenotomy, AC joint resection, rotator cuff repair, subacromial decompression. Patient understands and agrees with current plan. All questions answered. He understands these and outs procedure the risk benefits complication alternatives of surgery and through shared/make elects proceed with surgical intervention. Risk of surgery include not limited to make a better make worse injury to nerves vessels or tendons, arthrofibrosis, failure of repair, Josue deformity, infection. Understanding risk of surgery elects to proceed. All questions answered at this time. Coding Level of Care Code Acute Code for Chg Paty
[2023-07-26] MEDS: ceFAZolin 3,000 MG in sodium chloride 0.9% (plus) 100 ML 200 MG IV (11:32)
[2023-07-26] MEDS: EPINEPHrine 1 mg/mL INJ 2 MG XX (12:26)
--- NOTE | 2023-07-26 13:47 | P.BOP_ITS ---
Date of Procedure: 07/26/2023 Surgeon: Tate Drake DO Automobile Technician(s): None Procedure(s) performed: Right shoulder diagnostic and surgical arthroscopy with biceps tenodesis Right shoulder diagnostic and surgical arthroscopy with subscapularis tendon repair Right shoulder diagnostic and surgical arthroscopy with labral debridement Right shoulder diagnostic and surgical arthroscopy subacromial decompression (bursectomy and acromioplasty) Right shoulder diagnostic and surgical arthroscopy with AC joint resection (distal clavicle excision) Right shoulder diagnostic and surgical arthroscopy with rotator cuff tendon repair (supraspinatus tendon?large tear-requiring double row speed bridge) Findings of the procedure(s): Patient found to have SLAP tear with biceps tendon tearing as well as upper border the subscapularis tendon torn as well as labral tearing subacromial impingement AC joint arthritis and rotator cuff tendon tear underwent procedure as planned without issues or complications Estimated blood loss: 10 mL Specimen(s) removed: None Post-operative diagnosis: Subscapularis tendon tear, supraspinatus tendon tear, biceps tendon tear, labral tear, AC joint arthritis, subacromial impingement
--- NOTE | 2023-07-26 13:49 | P.OP_ITS ---
Operative Report Date of procedure: July 26, 2023 Surgeon: Tate Drake DO Procedure: Surgeon: Tate Drake DO Procedure: Preoperative diagnosis: Right shoulder rotator cuff tear, subacromial impingement, AC joint arthritis, biceps tendinitis Post-op diagnosis: Right shoulder labral tearing Right shoulder long head bicep tendon tear Right shoulder subscapularis tendon tear Right shoulder supraspinatus tendon tear Right shoulder AC joint arthritis Right shoulder subacromial bursitis/impingement Procedure done: Right shoulder diagnostic and surgical arthroscopy with biceps tenodesis Right shoulder diagnostic and surgical arthroscopy with subscapularis tendon repair Right shoulder diagnostic and surgical arthroscopy with labral debridement Right shoulder diagnostic and surgical arthroscopy with acromioclavicular joint resection (distal clavicle excision) Right shoulder diagnostic and surgical arthroscopy with subacromial decompression (bursectomy and acromioplasty) Right shoulder diagnostic and surgical arthroscopy with Supraspinatus rotator cuff repair (large) Surgeon: Tate Drake DO Estimated blood loss: 5mL IV fluids: See anesthesia record Implants: Arthrex self punching suture tacks x 2 Arthrex 4.75 swivel lock x 3 Arthrex scorpion and suture tape Bicep tenodesis loop and tack Arthrex kit Complications: None Condition: stable Disposition: same day Brief History: Patient been seen and worked up in the outpatient setting for right shoulder pain.? Pt had an MRI MRI from outside facility showing subscapularis tendon tear, supraspinatus tendon tearing, bicep tendon tear and labral tear as well as AC joint arthritis. patient's failed conservative treatment. We talked about treatment options far as nonoperative and operative intervention..? We talked about risk benefits complication alternatives surgical nonsurgical treatment options.? Understanding risk of surgery pt agrees to proceed with surgical intervention.? All questions have been answered at this time.? Patient elects proceed with surgery and consent obtained in office. Procedure: Patient seen evaluated in the preoperative holding area.? Consent reviewed and signed with patient.? Once again reviewed patient's MRI results as well as? planned surgical intervention.? Correct extremity marked.? Patient seen evaluated by anesthesia department received regional anesthesia.? Once ready for surgery was taken back to the operative suite.? Patient then subsequently underwent anesthesia per the anesthesia department was transported onto the OR table.? Patient was then placed into a lateral decubitus position with a beanbag and was appropriately secured to the bed.? All bony prominences well-padded.? Patient then had the right upper extremity was then prepped and draped in standard orthopedic fashion.? Patient received appropriate preoperative antibiotics.? Final timeout performed. The right upper extremity was then held in hanging from traction utilizing sterile technique.? Next started with standard diagnostic and surgical arthroscopy with posterior portal position introduced arthroscope into the glenohumeral joint.? Visualized the glenohumeral joint I then introduced a spinal needle within the rotator?cuff?interval to confirm appropriate anterior portal placement.? Once this was confirmed I then made my small incision and then introduced my arthroscopic shaver into the glenohumeral joint.? After thorough debridement, patient was confirmed to having a long head of biceps tendon tear. After flushing the joint fluid, was clearly evident patient had biceps tendon tearing as well as Superior labral tear and tear of the biceps tendon. Patient had appreciable unstable biceps anchor most pronounced in the superior labrum. Given there appears to be healthy intra-articular tendon plan was for an intra- articular biceps tenodesis at the superior portion as it enters the intertubercular groove. Thermal wand introduced into the rotator interval. I then release of the rotator interval to have appropriate visualization and the ability to perform biceps tenodesis. At this point I established a purple passport cannula which was introduced. Next I performed an Arthrex loop and tap biceps tenodesis. Passer was then made around the tendon luggage tag stitch around and then thru the tendon and around twice I then utilized a thermal wand to release the biceps tendon at the anchor to perform with tenotomy. Next I evaluated the subscapularis tendon which was tear of subscapularis tendon as a result elected for subscapularis tendon repair. I then subsequently introduced an Arthrex scorpion loaded with a link suture. I subsequently had initial purchase of the majority of the upper third of the subscapularis. Prior to this I did utilize thermal wand to open up the rotator interval as well as to bluntly release any adhesions off the anterior aspect of the subscapularis tendon for appropriate isolated capture of just the subscapularis. Once again I subsequently luggage tag with suture and made 2 more additional passes to the subscapularis tendon had excellent purchase through the tendon. I then loaded with suture from both the long head of the bicep tendon as well as subscapularis tendon suture to perform my repair into 1 anchor and these were subsequently loaded onto an Arthrex 4.75 swivel lock suture anchor. A punch was then placed in appropriate position at the entry point into the intertubercular groove just superior to the subscapularis tendon. Punch was then introduced to the appropriate depth. The suture loaded on the swivel lock was then advanced held under appropriate tension and shoulder lock anchor was then advanced and had excellent fixation. Excess suture was then cut biceps tenodesis and subscapularis tendon repair was complete. I then utilized a thermal wand to seal the edges of the superior labrum. ?Next there was significant labral tearing circumferential.? ? I then subsequently utilized a a arthroscopic shaver and thermal wand to perform a labral debridement.? This point time I then visualized the glenohumeral joint.? The glenohumeral joint was found to have grade 1-2? chondromalacia throughout.? Infrapatellar pouch was free of loose bodies from viewing the posterior portal.? Next a visualized the rotator?cuff?superiorly and there was found to be a tear in the supraspinatus tendon large with retration to medial of humeral head.? I utilized a spinal needle to josafat this location.?? This completed my work within the glenohumeral joint all fluid was suctioned free of the joint.? ?Next I reintroduced the arthroscope posteriorly.? And went to the subacromial space.? I established my lateral working portal at the site of which my spinal needle was marking of the rotator?cuff?tear.? Thermal wand was then introduced laterally and then I subsequently performed extensive bursectomy of the subacromial space.? Patient had a large anterior bone spur.? At this point time I proceeded with my AC joint resection thermal wand was used and track to the anterior edge of the acromion and then tracked all the way to the AC joint.? Once identified the AC joint this was very arthritic in nature.? Thermal wand was placed anteriorly to establish appropriate plane for AC joint resection.? Once appropriate margins and anterior inferior and anterior capsule was released I then introduced arthroscopic shaver and a bur and performed AC joint resection of both the acromion to cope plane at the AC joint and a distal clavicle resection was then performed totaling 1 cm in size and was confirmed.? This completed my AC joint resection and I then introduced the arthroscopic shaver laterally while continuing to view posteriorly.? I then performed an acromioplasty to complete my subacromial decompression prior to fixing the rotator?cuff?tear.? Next the arthroscopic shaver was then used previous spinal needle spot that is marked the small hole in the rotator?cuff?this was consistent with a full- thickness tear.? Tear was large in size requiring a double row speed bridge repair. I made an accessory portal utilizing a spinal needle to have a man's angle directly perpendicular to the medial footprint. I subsequently prepped and decorticated the rotator cuff footprint with a ring curette as well as with arthroscopic shaver. I then subsequently punched and placed a 2x arthrex suture anchor self punching suture taks with 4 Arthrex suture tapes. These were subsequently left out of the accessory portal and then subsequently retrieved and passed for individual passes of the suture tape. These were then loaded into my lateral row anchor with a single 4.75 swivel lock. I cleared off the lateral aspect of the greater tuberosity and then subsequently placed by punch and then loaded the anterior 4.75 swivel lock with the 2 in position 1 & 3 rotator cuff suture tapes appropriately tensioned these with care not to over tension and then subsequently malleted the eyelet with appropriate tension maintained and then subsequently secured the 4.75 swivel lock with excellent purchase and fixation. I then subsequently utilized suture grasper to grasp the 2 and 4 rotator cuff suture tapes loaded into a 4.75 swivel lock punch this is my posterior and lateral suture anchor this was punched and subsequently sutures were appropriately tensioned and then subsequently malleted in the 4.75 swivel lock and had excellent purchase and fixation. Sutures were then cut with an arthroscopic suture cutter and subsequently evaluated the rotator?cuff?repair.??Repair?was found to be satisfactory shoulder was taken t hrough range of motion and the?repair?moved as a unit with no evidence of loss of fixation. ?I then switched the arthroscope to the lateral portal to confirm this tension- free?repair.? I took the shoulder through range of motion and the rotator?cuff?repair?was stable and moved as a unit. ?Next I then introduced the arthroscopic shaver posteriorly to complete my subacromial decompression appropriate complaining all the way up to the lateral edge of the acromion. This completed the surgery.? All fluid was suctioned from the shoulder.? All instruments were removed.? The lateral incision was then closed with nylon stitches.? As well as the portal sites closed with portal nylon stitches.? Xeroform 4 x 4's ABD and tape was then applied to the right shoulder and was placed into a shoulder abduction pillow sling for rotator?cuff?repair.? Patient was then awakened from anesthesia and then taken back to PACU in stable condition.? Patient tolerated procedure without any issues. Disposition: Patient taken back in stable condition recovering well.? Dressings on in place clean dry and intact.? Will be nonweightbearing to the right upper extremity.? Follow rotator?cuff?repair?protocol.? Patient to follow-up with me in the office in 2 weeks.? Patient will receive appropriate discharge instruction as well as pain medication postoperatively.? All questions answered.? We will contact the office for any questions or concerns.
[2023-07-26 14:06] LABS: Glucose Point of Care 189 mg/dL (70-110)
[2023-07-26] MEDS: HYDROcodone-acetaminophen 7.5-325 mg Tablet 1 TAB PO (14:55)
--- NOTE | 2023-07-26 15:25 | ANE.PACU2 ---
Inpatient post-anesthesia follow up: Airway intact: Yes Vital signs: Temperature 97.2 F Pulse Rate 75 Respiratory Rate 18 Blood Pressure 121/68 Pulse Oximetry 95 Oxygen Delivery Me thod Room Air Oxygen Flow Rate Fraction of Inspir ed Oxygen Hydration adequate: Yes Nausea and vomiting: No Pain level: 1 Mental status: Baseline
== END 2023-07-26 15:23 | disposition home or self-care (01) ==
PROVIDERS: PCP Nurse Practitioner Family; Visit Provider Student in an Organized Health Care Education/Training Program
PROC: (CPT 29805; principal; 2023-07-26 11:00)
PROC: (CPT 29827; 2023-07-26 11:00)
PROC: (CPT 29826; 2023-07-26 11:00)
PROC: 0RSG0ZZ Reposition Right Acromioclavicular Joint, Open Approach (ICD-10-PCS; CPT 29822; 2023-07-26 11:00)
PROC: (CPT 29807; 2023-07-26 11:00)
PROC: (CPT 23430; 2023-07-26 11:00)
DX: M75.101 Unspecified rotator cuff tear or rupture of right shoulder, not specified as traumatic (principal); M25.811 Other specified joint disorders, right shoulder; M19.011 Primary osteoarthritis, right shoulder; M75.21 Bicipital tendinitis, right shoulder; E11.40 Type 2 diabetes mellitus with diabetic neuropathy, unspecified; Z79.4 Long term (current) use of insulin; Z79.84 Long term (current) use of oral hypoglycemic drugs; I10 Essential (primary) hypertension
CPT/HCPCS: 29822; 29826; 29827; 29828; 36416; 82962; C1713; J0131; J0171; J0330; J0690; J1100; J1885; J2371; J2405; J2704; J2710; J2795; J3010; J3490

== ENCOUNTER 2023-09-26 06:48 | Outpatient (CLI) | payer MEDICAID, SELFPAY ==
--- NOTE | 2023-09-26 06:51 | USCV_ITS ---
Clark Salamanca Age: 53 Gender: M : 1970 Exam Date: 09/26/2023 06:59 Ordering Phys: Dimitri Gaines MD ([email or web address]) Technologist: Exam Location: [facility] [place]: sob BP: 130 / 85 HR: 94 Rhythm: Sinus Technical Quality: Adequate MEASUREMENTS (Male / Female) Normal Values 2D ECHO LV Diastolic Diameter PLAX 5.1 cm 4.2 - 5.9 / 3.9 - 5.3 cm IVS Diastolic Thickness 1.2 cm 0.6 - 1.0 / 0.6 - 0.9 cm IVS Systolic Thickness 1.6 cm LVPW Diastolic Thickness 1.3 cm 0.6 - 1.0 / 0.6 - 0.9 cm LVPW Systolic Thickness 1.4 cm LVOT Diameter 2.8 cm LV Ejection Fraction 2D Teich 66.3 % LV Ejection Fraction MOD 2C 59.6 % LV Ejection Fraction 2C AL 58.4 % LA Diameter 3.9 cm RA Systolic Volume 4C AL 58.7 ml RA Systolic Volume 4C MOD 56.3 ml LA Sys Volume AL 107.3 cm cubed LA Sys Volume Index AL 40.4 cm cubed/m squared Aorta at Sinotubular Diameter 3.2 cm IVC Diameter 1.6 cm M-MODE LA Ao Ratio MM 1.4 AV Cusp Separation MM 1.8 cm DOPPLER AV Peak Velocity 113.0 cm/s LVOT Peak Velocity 92.0 cm/s AV Area Cont Eq vti 6.4 cm squared AV Area Cont Eq pk 4.9 cm squared MV Peak Velocity 77.0 cm/s MV Area PHT 3.7 cm squared Mitral E to A Ratio 1.0 TV Peak Velocity 149.5 cm/s TR Peak Velocity 157.0 cm/s TR Peak Gradient 9.9 mmHg TV Peak E Velocity 68.0 cm/s Right Atrial Pressure 3.0 mmHg Pulmonary Artery Systolic Pressu 12.9 mmHg FINDINGS Left Ventricle Normal left ventricular size and systolic function, EF 58%. No regional wall motion abnormalities. Grade I/IV diastolic dysfunction (abnormal relaxation filling pattern), normal to mildly elevated filling pressures. Mild concentric left ventricular hypertrophy Right Ventricle The right ventricle is normal in size and function. Right Atrium The right atrium is normal in size. Left Atrium Mildly increased left atrial size. Mitral Valve Mild mitral valve regurgitation. Aortic Valve No gross abnormalities noted Tricuspid Valve Trace tricuspid valve regurgitation. Pulmonic Valve No gross abnormalities noted Pericardium Normal pericardium without effusion. Aorta Normal ascending aorta dimension. IVC The inferior vena cava appears normal. CONCLUSIONS Normal left ventricular size and systolic function, EF 58%. No regional wall motion abnormalities. Grade I/IV diastolic dysfunction (abnormal relaxation filling pattern), normal to mildly elevated filling pressures. Mild concentric left ventricular hypertrophy. Mild left atrial enlargement. Mild mitral valve regurgitation. Trace tricuspid valve regurgitation. Estimated pulmonary artery peak systolic pressure within normal limits There is no pericardial effusion. There are no intracardiac masses. No similar previous studies are available for comparison Dr Dimitri Gaines MD FACC (Electronically Signed) Final Date: 27 Sep 2023 07:36 S
== END 2023-09-26 06:49 | disposition home or self-care (01) ==
LOC: RAD 06:48
PROVIDERS: PCP Nurse Practitioner Family; Visit Provider Internal Medicine Cardiovascular Disease
DX: R00.2 Palpitations (principal); R06.09 Other forms of dyspnea; R07.2 Precordial pain; I34.0 Nonrheumatic mitral (valve) insufficiency; I10 Essential (primary) hypertension
CPT/HCPCS: 93306

== ENCOUNTER → 2024-02-28 08:47 | Outpatient (BNVA) | payer MEDICAID, SELFPAY | PROVIDERS: PCP Nurse Practitioner Family; Visit Provider Orthopaedic Surgery | DX: M54.2 Cervicalgia (principal); M54.9 Dorsalgia, unspecified; G89.29 Other chronic pain | CPT/HCPCS: 72110 ==

== ENCOUNTER → 2024-08-14 11:01 | Outpatient (BNVA) | payer MEDICAID, SELFPAY | PROVIDERS: PCP Nurse Practitioner Family; Visit Provider Orthopaedic Surgery | DX: M54.50 Low back pain, unspecified (principal) | CPT/HCPCS: 72110 ==

== ENCOUNTER → 2024-08-28 16:45 | Outpatient (BNVA) | payer MEDICAID, SELFPAY | PROVIDERS: PCP Nurse Practitioner Family; Visit Provider Orthopaedic Surgery | DX: E11.9 Type 2 diabetes mellitus without complications (principal); Z01.818 Encounter for other preprocedural examination | CPT/HCPCS: 36415; 80053; 81001; 83036; 85025 ==